=== PATIENT | male | born 1955 | race Caucasian/White ===

== ENCOUNTER 2017-07-26 20:31 | Emergency (ER) | payer SELFPAY ==
[~2017-07-26] VITALS: Ht 177.8 cm; Wt 67.0 kg
[2017-07-26 21:52] VITALS: Ht 177.8 cm; Wt 67.0 kg
[2017-07-27] MEDS ORDERED: morphine 4 MG/ML VIAL IV STA (03:33)
[2017-07-27] MEDS ORDERED: ONDANSETRON 4 MG INJ IV STA (03:33)
[2017-07-27 04:50] LABS: HEMOGLOBIN 14.5 g/dl (14.0-18.0); LYMPHOCYTES % 29.1 % (15.0-51.0); MEAN CORPUSCULAR HEMOGLOBIN 30.3 pg (29.0-33.0); MEAN CORPUSCULAR VOLUME 91.9 fl (82.0-101.0); MEAN PLATELET VOLUME 10.1 fl (7.4-10.4); MONOCYTES % 6.4 % (0.0-11.0); NEUTROPHILS % 63.1 % (39.0-77.0); PLATELET COUNT 212 10^3/UL (140-415); RED BLOOD COUNT 4.79 10^6/ul (4.70-6.10); RED CELL DISTRIBUTION WIDTH 12.3 % (11.5-14.5); WHITE BLOOD COUNT 5.2 10^3/ul (4.8-10.8)
[2017-07-27 04:51] LABS: ALANINE AMINOTRANSFERASE 38 IU/L (13-69); ALBUMIN 3.9 g/dl (3.3-4.9); ALBUMIN/GLOBULIN RATIO 1.34; ALKALINE PHOSPHATASE 191 IU/L (42-121); ANION GAP 19 (8-16); ASPARTATE AMINO TRANSFERASE 23 IU/L (15-46); BASOPHILS % 0.4 % (0.0-2.0); BILIRUBIN,INDIRECT 0.5 mg/dl (0-1.1); BILIRUBIN,TOTAL 0.5 mg/dl (0.2-1.3); BLOOD UREA NITROGEN 15 mg/dl (7-20); CALCIUM 8.5 mg/dl (8.4-10.2); CARBON DIOXIDE 29 mmol/L (21-31); CHLORIDE 100 mmol/L (97-110); CREATININE 0.94 mg/dl (0.61-1.24); EOSINOPHILS # 0.1 10^3/ul (0.0-0.5); GLUCOSE 239 mg/dl (70-220); LYMPHOCYTES # 1.5 10^3/ul (0.8-2.9); MONOCYTE # 0.3 10^3/ul (0.3-0.9); POTASSIUM 3.6 mmol/L (3.5-5.1); SODIUM 144 mmol/L (135-144); TOTAL PROTEIN 6.8 g/dl (6.1-8.1)
[2017-07-27 05:02] LABS: B-TYPE NATRIURETIC PEPTIDE 15 PG/ML (0-125)
--- NOTE | 2017-07-27 05:06 | RADRPT ---
PROCEDURE: XR Chest. CLINICAL INDICATION: Chest pain. TECHNIQUE: AP Portable chest. COMPARISON: No pertinent prior examinations were submitted for comparison. FINDINGS: There are multiple surgical clips at below the right hemidiaphragm. The cardiomediastinal silhouette is normal.The aortic arch is calcified. No focal consolidation, ple ural effusion or pneumothorax is seen. There is evidence of a right epicardial fat pad. The osseous structures are intact. IMPRESSION: No radiographic evidence of acute cardiopulmonary disease. Aortic atherosclerosis. Physician Anderson Date Time Electronically viewed and signed by Yadira Arenas Physician on 07/27/2017 05:06 TERESE/
[2017-07-27 05:07] VITALS: TEMP 98.8
[2017-07-27 05:08] LABS: TROPONIN-I < 0.012 ng/ml (0.00-0.12)
[2017-07-27] MEDS ORDERED: NAPR220C2 PO (05:28)
--- NOTE | 2017-07-27 05:51 | ERD ---
ER Documentation Chief Complaint Date/Time DATE: 07/27/17 TIME: 05:50 Chief Complaint bilateral leg swelling and pain x 4 mos HPI This 61-year-old bilateral leg pain and swelling for the past 4 months. Denies any fevers chills nausea vomiting. Denies any other current complaints. Denies any chest pain. Denies any shortness of breath. ROS All systems reviewed and are negative except as per history of present illness. Medications Home Meds Reported Medications Naproxen* (Aleve*) 220 Mg Capsule, 440 MG PO BID, #60 CAP 07/27/17 Allergies Allergies: Coded Allergies: No Known Allergy (Unverified , 07/27/17) PMhx/Soc Medical and Surgical Hx: pt denies Medical Hx, pt denies Surgical Hx History of Surgery: No Anesthesia Reaction: No Hx Neurological Disorder: No Hx Respiratory Disorders: No Hx Cardiac Disorders: No Hx Psychiatric Problems: No Hx Miscellaneous Medical Probl: No Hx Alcohol Use: No Hx Substance Use: No Hx Tobacco Use: No Smoking Status: Never smoker Physical Exam Vitals Vital Signs Date Time Temp Pulse Resp B/P Pulse Ox O2 Delivery O2 Flow Rate FiO2 07/27/17 05:07 98.8 71 20 131/81 98 Room Air 07/26/17 21:52 98.8 88 20 127/71 98 Physical Exam Const: [] Head: Atraumatic Eyes: Normal Conjunctiva ENT: Normal External Ears, Nose and Mouth. Neck: Full range of motion..~ No meningismus. Resp: Clear to auscultation bilaterally Cardio: Regular rate and rhythm, no murmurs Abd: Soft, non tender, non distended. Normal bowel sounds Skin: No petechiae or rashes Back: No midline or flank tenderness Ext: No cyanosis, or edema Neur: Awake and alert Psych: Normal Mood and Affect Result Diagram: 07/27/17 0352 07/27/17 0352 Results 24 hrs Laboratory Tests Test 07/27/17 03:52 White Blood Count 5.210^3/ul Red Blood Count 4.7910^6/ul Hemoglobin 14.5g/dl Hematocrit 44.0% Mean Corpuscular Volume 91.9fl Mean Corpuscular Hemoglobin 30.3pg Mean Corpuscular Hemoglobin Concent 33.0g/dl Red Cell Distribution Width 12.3% Platelet Count 36730^3/UL Mean Platelet Volume 10.1fl Neutrophils % 63.1% Lymphocytes % 29.1% Monocytes % 6.4% Eosinophils % 1.0% Basophils % 0.4% Nucleated Red Blood Cells % 0.0/100WBC Neutrophils # (Manual) 3.310^3/ul Lymphocytes # 1.510^3/ul Monocytes # 0.310^3/ul Eosinophils # 0.110^3/ul Basophils # 0.010^3/ul Nucleated Red Blood Cells # 0.010^3/ul Sodium Level 144mmol/L Potassium Level 3.6mmol/L Chloride Level 100mmol/L Carbon Dioxide Level 29mmol/L Anion Gap 19 Blood Urea Nitrogen 15mg/dl Creatinine 0.94mg/dl Glucose Level 239mg/dl Calcium Level 8.5mg/dl Total Bilirubin 0.5mg/dl Direct Bilirubin 0.00mg/dl Indirect Bilirubin 0.5mg/dl Aspartate Amino Transf (AST/SGOT) 23IU/L Alanine Aminotransferase (ALT/SGPT) 38IU/L Alkaline Phosphatase 191IU/L Troponin I < 0.012ng/ml B-Type Natriuretic Peptide 15PG/ML Total Protein 6.8g/dl Albumin 3.9g/dl Globulin 2.90g/dl Albumin/Globulin Ratio 1.34 Current Medications Medications (Trade) Dose Ordered Sig/Osvaldo Route PRN Reason Start Time Stop Time Status Last Admin Dose Admin Morphine Sulfate (morphine) 4 mg ONCE STAT IV 07/27/17 03:33 07/27/17 03:35 DC 07/27/17 04:21 Ondansetron HCl (Zofran Inj) 4 mg ONCE STAT IV 07/27/17 03:33 07/27/17 03:35 DC 07/27/17 04:21 Procedures/MDM EKG: Rate/Rhythm: [Normal Sinus Rhythm] QRS, ST, T-waves: [No changes consistent w/ acute ischemia] Impression: [No evidence of ischemia or arrhythmia] Chest X-ray 1V Interpreted by me: Soft Tissue: No acute abnormalities Bones: No acute abnormalities Mediastinum/Cardiac Silhouette/Lungs: [No acute abnormalities] Medical decision made: 61-year-old male nondependent edema. Patient will be discharged home with [place] [facility] [place]. Follow with PCP. Return for worsening symptoms. No evidence of CHF. Departure Diagnosis: Primary Impression: Edema Edema type: unspecified Qualified Code: R60.9 - Edema, unspecified type Condition: Stable SHANNAN LINDSEY Jul 27, 2017 05:51
[2017-07-27] MEDS ORDERED: FURO-110 PO (05:57)
[2017-07-27] MEDS ORDERED: HYDR-902 PO (05:57)
[2017-07-27 06:15] VITALS: BP 120/83; PULSE 95; RESP 14
== END 2017-07-27 06:15 | disposition home or self-care (01) ==
LOC: E/R 20:31
DX: R60.9 Edema, unspecified (principal); R06.02 Shortness of breath
CPT/HCPCS: 36415; 71010; 80053; 83880; 84484; 85025; 93005; 96374; 96375; 99285; J2270; J2405